=== PATIENT | male | born 1950 | race Caucasian/White ===

== ENCOUNTER 2025-05-21 15:54 | Emergency (ER) | payer MEDICARE, BC ==
[~2025-05-21] VITALS: Ht 182.9 cm; Wt 73.6 kg
[2025-05-21 16:01] VITALS: BP 108/81; PULSE 84; TEMP 97.9; O2SAT 97
[2025-05-21] MEDS ORDERED: CYCL-394 PO (16:49)
[2025-05-21] MEDS ORDERED: LIDO-52 TOP (16:49)
--- NOTE | 2025-05-21 16:50 | Physician Documentation ---
History of Present Illness ~ Chief Complaint: Neck pain Stated Complaint: NECK PAIN Time Seen by MD: 16:38 [facility] 74-year-old male presents to the ED with a 2-3 days of increased cervical pain. States he place 3-4 hours a pink palm three to 4 times a week and he also states that he sleeps on his side. States that he has never had the cervical pain denies any numbness or tingling or arm pain or burning. Denies any acute injury states he also likes to garden outside Day of Onset: May 21, 2025 Medication Reconciliation Allergies: Coded Allergies: hydrocodone (Verified Adverse Reaction, Unknown, INCOMPACITATES PT, 05/21/25) Review of Systems All Other Systems at this time: Reviewed and Negative ROS As stated above in the HPI, otherwise all systems are reviewed and negative. Physical Exam Vital Signs: Temperature: 97.9, Source: Temporal, Heart Rate: 84, Respiratory Rate: 16, BP: 108/81, Pulse Oximetry: 97, Weight: 73.600 Oxygen Flow Rate: 0 Physical Exam General: Alert, no apparent distress. HEENT: PERRL, EOMI, no injection, moist mucous membranes. Neck: Full range of motion. Tender to palpation of the lower cervical vertebrae or tenderness to the right trapezius Extremities: Normal range of motion, no deformity. Neurologic: Oriented x4. Psychiatric: Normal mood and affect. Skin: Normal color, warm and dry. No edema, no ecchymosis. Progress Results/Orders Results/Orders Vital Signs 05/21/25 16:01 Temp 97.9 Pulse 84 Resp 16 B/P (MAP) 108/81 Pulse Ox 97 O2 Flow Rate 0 Medical Decision Making Additional information obtaine: old records Findings He is suspicious of a cervical spasm or strain. Going to provide the patient with cyclobenzaprine for home use and Lidoderm with a single dose here in the ED. I do not suspect anything emergent in nature. Differential Dx:Considerations: Include: Cervical muscle spasm, Discitis, DJD, Meningitis, Thyroiditis, Torticollis, Vertebral artery dissect., Other Departure Disposition: HOME / SELF CARE / HOMELESS Impression: Primary Impression: Strain of neck muscle Condition: Stable Discharge Instructions: Cervical Sprain Referrals: NO PRIMARY CARE PROVIDER (PCP) Prescriptions Lidocaine (Lidoderm) 5 % Adh..patch 1 PATCH TOP DAILY for 30 Days, #10 PATCH 0 Refills may wear up to 12 hours Prov: BALDEV DREW NP 05/21/25 Cyclobenzaprine HCl (Cyclobenzaprine HCl) 10 Mg Tablet 1 TAB PO HS for muscle spasms for 30 Days, #30 TAB Prov: BALDEV DREW NP 05/21/25 Signature Scribe Signature: t Attestation: Scribed for Baldev Drew Np by Baldev Sellers NP . 05/21/25 16:50 BALDEV DREW NP May 21, 2025 16:50
[2025-05-21 16:51] VITALS: RESP 16
== END 2025-05-21 17:15 | disposition home or self-care (01) ==
LOC: ER 15:56
DX: S16.1XXA Strain of muscle, fascia and tendon at neck level, initial encounter (principal); Z88.5 Allergy status to narcotic agent; X58.XXXA Exposure to other specified factors, initial encounter; Y93.89 Activity, other specified; Y92.89 Other specified places as the place of occurrence of the external cause; Y99.8 Other external cause status
CPT/HCPCS: 99283